=== PATIENT | female | born 1950 | race Caucasian/White ===

== ENCOUNTER 2016-11-10 15:22 | Inpatient (IN) ==
[2016-11-10 17:57] LABS: ALLEN TEST YES; BE -1.7 mmoll (-3.0-3.0); BLOOD TYPE ARTERIAL; DRAW SITE L RADIAL; METHB 1.6 % (0.0-1.5); MODALITY ROOM AIR; O2(CT) 15.7 mL/dL (15.0-23.0); PCO2(98.6) 30 mmHg (35-45); PO2(98.6) 75 mmHg (60-100); SAMPLE BLOOD; SAO2 98.2 % (95.0-100.0); THB 11.7 g/dL (11.5-17.4); pH(98.6) 7.46 (7.35-7.45)
[2016-11-10 19:19] LABS: MANUAL DIFF NEEDED? NO
[2016-11-10 19:26] LABS: BASO% 0.4 % (0.0-0.8); EOS# 0.14 X1000 (0.0-0.7); EOS% 1.5 % (0.0-10.0); HEMATOCRIT 33.4 % (37.0-47.0); HEMOGLOBIN 11.2 g/dL (12.0-16.0); IMM GRAN# 0.02 X1000 (0.0-0.04); IMM GRAN% 0.2 % (0.0-0.5); LYMPH# 1.57 X1000 (1.2-3.4); LYMPH% 16.6 % (20.5-51.1); MCH 30.8 PG (27-31); MCHC 33.5 g/dL (33-37); MCV 91.8 FL (81-99); MONO# 0.78 X1000 (0.11-0.59); MONO% 8.3 % (1.7-9.3); MPV 8.5 FL (7.4-10.4); PLT 607 X1000 (130-400); RBC 3.64 XMIL (4.2-5.4)
[2016-11-10 19:41] LABS: INR 1.06; PROTIME 10.8 Seconds (9.2-11.7)
[2016-11-10 19:48] LABS: ALBUMIN 3.2 g/dL (3.5-5.0); POTASSIUM 4.3 mmol/L (3.5-5.1); TOTAL BILIRUBIN 0.33 mg/dL (0.20-1.00); TOTAL PROTEIN 7.3 g/dL (6.3-8.3)
--- NOTE | 2016-11-10 22:17 | HISTORY AND PHYSICAL ---
CHIEF COMPLAINT: Shortness of breath on exertion. No swelling of legs. Decreased appetite for the last 4 weeks. HISTORY OF PRESENT ILLNESS: She is a 66-year-old white female, basically came in my office today with above symptoms. She is extremely tachycardic, pulse oximetry dropped to 94% on exertion. Heart rate is 130. She has been taking tamoxifen. Recently she had a colonoscopy done. Since then, her symptoms are having fatigue, exertional shortness of breath, coughing, no appetite. Clinically, there were no signs of edema. She has been hospitalized basically for rule out pulmonary embolism and further evaluation for exertional shortness of breath. PAST MEDICAL HISTORY: Allergic rhinitis. Breast cancer on the right side 1.8 cm status post lumpectomy, chemo and radiation. ER VT positive, on tamoxifen. Type 2 diabetes. Reflux disease. Hyperlipidemia. Hypertension. Plantar fasciitis. PAST SURGICAL HISTORY: Appendectomy. Cholecystectomy. Partial hysterectomy. Tubal ligation. Right breast lumpectomy. MEDICINES: Aspirin, Flonase, Glucovance 5/500 two tablets p.o. b.i.d., Hyzaar 50/12.5 daily, Prilosec 40 daily, potassium 20 mEq daily, Singulair 10 mg daily, tamoxifen 20 mg daily, Ultracet as needed, Zyrtec 10 mg daily. ALLERGIES: Penicillin. SOCIAL HISTORY: Lives in [place]. . 3 children. Works at [employer]. No smoking. No alcohol. FAMILY HISTORY: Mom of old age. Siblings had breast cancer. Mother of old age. HEALTH MAINTENANCE: Flu vaccine 2015 and mammography recently September 2016. DEXA scan 2013. Colonoscopy [address] Baker. REVIEW OF SYSTEMS: HEENT: No headache. No vision problem. No earache. No sore throat. Neck: No goiter. No lymphadenopathy. Cardiopulmonary: Exertional shortness of breath. No PND. No orthopnea. No chest pain. GI: Decreased appetite. No altered bowel habits. Recent colonoscopy normal. : No dysuria, hematuria, no swelling of feet. No joint pains. Neurologic: No focal symptoms or weakness or seizures. PHYSICAL EXAMINATION: VITAL SIGNS: She is extremely tachycardic, afebrile. HEIGHT AND WEIGHT: 5 feet 9, 208 pounds. HEENT: Atraumatic, normocephalic. Slightly pale. TMs are normal. Nose and throat within normal limits. NECK: Supple. No lymphadenopathy. No goiter. CHEST: Bilateral air entry. Extremely tachycardic. ABDOMEN: Belly is soft, obese, nontender. Good bowel sounds. No masses palpable. EXTREMITIES: No peripheral edema, cyanosis, clubbing. NEUROLOGIC: No obvious focal deficits. INVESTIGATIONS: CBC: White cell count 9.4, hematocrit 33, platelets 607,000. PT/INR is normal. Positive D-dimer. ABG: PH is 7.46, pCO2 30, PO2 75. SMA7 is normal. Glucose 139. Cardiac enzymes were normal. ProBNP is normal. Chest x-ray is pending. EKG is pending. ASSESSMENT AND PLAN: 1. A 66-year-old white female, admitted to the hospital with exertional shortness of breath, lack of appetite since colonoscopy, taking tamoxifen, rule out pulmonary embolism in light of positive D-dimer. If it is negative, follow up on the pending laboratory. 2. Reconcile home medications. Deep venous thrombosis prophylaxis with Lovenox. Based on the computed tomography and chest x-ray, further recommendations will be followed.
--- NOTE | 2016-11-11 05:15 | EKG Report ---
Test Performed on : 11/10/2016 6:05:48 PM Test Reason : chest pain Blood Pressure : / mmHG Vent. Rate : 091 BPM Atrial Rate : 091 BPM P-R Int : 154 ms QRS Dur : 072 ms QT Int : 370 ms P-R-T Axes : 024 011 043 degrees QTc Int : 455 ms Normal sinus rhythm. Normal ECG When compared with ECG of 11-NOV-2015 13:36, [place] interval has decreased Criteria for Anterior infarct are no longer present T wave inversion no longer evident in Inferior leads Nonspecific T wave abnormality no longer evident in Anterolateral leads Confirmed by Omega MILNER, Patrice German ([id number]) on 11/11/2016 9:31:16 AM
[2016-11-11] MEDS: LOVENOX SUBQ SCH (06:37)
--- NOTE | 2016-11-11 07:38 | Diag Imaging Result Document ---
PROCEDURE NAME: ANGIOGRAM/PULMONARY ARTERIES - 11/10/2016 CT OF THE CHEST WITH INTRAVENOUS CONTRAST: FINDINGS: There are no filling defects in the pulmonary arteries. There is consolidation of the right upper lobe particularly laterally. There is some volume loss as well. There is some scattered very small nodular opacities such as the subcentimeter nodule on image 78 in the superior segments of the left lower lobe, as that on image 75. There is a Port-A-Cath on the left. There is a right paratracheal node measuring almost 16 mm in long axis on image 43 and another in the tracheobronchial region on the right measuring over 18 mm. There is extensive calcification of the left anterior descending artery. There is apparent hepatic steatosis. There are no previous studies available for comparison. The opacity in the right upper lobe was not present on the previous portable chest from 12/09/2015. There are no previous chest radiographs subsequent to this before the recent radiograph of 11/10/2016. IMPRESSION: Right upper lobe pneumonia. No evidence of pulmonary emboli.
[2016-11-11] MEDS: KLOR-CON PO SCH (08:35)
[2016-11-11] MEDS: HYZAAR 50/12.5 MG PO SCH (08:35)
[2016-11-11] MEDS: NOLVADEX PO SCH (08:36)
[2016-11-11] MEDS: GLUCOVANCE 5-500 MG TABLET PO SCH ×2 (08:36→08:39)
[2016-11-11] MEDS: ASPIRIN PO SCH (08:37)
[2016-11-11] MEDS: AZACTAM 1 GM in NS 50 ML IV SCH ×2 (08:45→16:38)
[2016-11-11] MEDS ORDERED: LEVAQUIN 750 MG/D5W 150 ML IV ONE (08:45)
--- NOTE | 2016-11-11 09:33 | Diag Imaging Result Document ---
PROCEDURE NAME: CHEST-2 VIEWS - 11/10/2016 CHEST X-RAY, 2 VIEWS: COMPARISON: 12/09/2015. FINDINGS: There is a stable left chest port. There is significant infiltrate throughout the right upper lobe. Heart size remains normal. No pneumothorax or pleural effusion. IMPRESSION: Right upper lobe pneumonia.
[2016-11-11] MEDS ORDERED: BLISTEX MEDICATED BERRY LIP BALM TOP PRN (11:22)
[2016-11-12] MEDS: AZACTAM 1 GM in NS 50 ML IV SCH ×3 (01:52→20:03)
[2016-11-12] MEDS: LOVENOX SUBQ SCH (06:03)
[2016-11-12] MEDS: HYZAAR 50/12.5 MG PO SCH (08:56)
[2016-11-12] MEDS: NOLVADEX PO SCH (08:57)
[2016-11-12] MEDS: KLOR-CON PO SCH (08:57)
[2016-11-12] MEDS: ASPIRIN PO SCH (08:57)
[2016-11-12] MEDS: LEVAQUIN 750 MG/D5W 150 ML IV SCH (09:05)
[2016-11-13] MEDS: AZACTAM 1 GM in NS 50 ML IV SCH ×3 (04:34→21:02)
[2016-11-13] MEDS: LOVENOX SUBQ SCH (05:13)
[2016-11-13] MEDS: NOLVADEX PO SCH (10:09)
[2016-11-13] MEDS: KLOR-CON PO SCH (10:10)
[2016-11-13] MEDS: HYZAAR 50/12.5 MG PO SCH (10:10)
[2016-11-13] MEDS: LEVAQUIN 750 MG/D5W 150 ML IV SCH (10:10)
[2016-11-13] MEDS: ASPIRIN PO SCH (10:10)
[2016-11-13] MEDS: GLUCOVANCE 5-500 MG TABLET PO SCH (18:32)
[2016-11-14] MEDS: AZACTAM 1 GM in NS 50 ML IV SCH ×2 (03:55→13:31)
[2016-11-14] MEDS: LOVENOX SUBQ SCH (06:14)
[2016-11-14] MEDS: LEVAQUIN 750 MG/D5W 150 ML IV SCH (10:20)
[2016-11-14] MEDS: NOLVADEX PO SCH (10:20)
[2016-11-14] MEDS: ASPIRIN PO SCH (10:20)
[2016-11-14] MEDS: GLUCOVANCE 5-500 MG TABLET PO SCH ×2 (10:20→17:51)
[2016-11-14] MEDS: HYZAAR 50/12.5 MG PO SCH (10:20)
[2016-11-14] MEDS: KLOR-CON PO SCH (10:20)
[2016-11-14] MEDS ORDERED: ZOFRAN IV PRN (14:01)
--- NOTE | 2016-11-14 14:58 | PROGRESS NOTE ---
DATE: 11/14/2016 SUBJECTIVE: Ms. Goldman is doing fair. The patient does have mild cough with scanty sputum production. No typical chest pain. Complaining of some sweating. No nausea or vomiting. The patient was admitted with right upper lobe pneumonia. Admission history and physical noted. Denied dysuria or hematuria. No diarrhea, blood, or mucus in the stool. Known case of breast cancer, status post lumpectomy, on tamoxifen, NIDDM, hypertension, hyperlipidemia, gastroesophageal reflux disease, plantar aphasia. OBJECTIVE: Vital signs: Noted. Neck: Supple. No JVD. Lungs: Bilateral good air entry present. CVS: S1 and S2 heard. Abdomen: Soft. No distention. Bowel sounds present. Extremities: No cyanosis, clubbing. No acute DVT. [employer] DEVELOPER: Alert, awake. Able to move all 4 limbs. CONSIDERATION: 1. Right upper lobe pneumonia. 2. Noninsulin-dependent diabetes mellitus. 3. Hypertension. 4. History of breast cancer. 5. Gastritis and reflux disease. PLAN: The patient is on IV antibiotics, sliding scale insulin, DVT prophylaxis. We will continue her home medicine. Current medications reviewed. Overall plan discussed with the patient. We are going to do blood work and chest x-ray tomorrow.
[2016-11-14] MEDS: NS IV SCH (20:19)
[2016-11-14] MEDS: AZACTAM IV SCH (20:19)
[2016-11-15] MEDS: AZACTAM IV SCH ×3 (04:14→22:17)
[2016-11-15] MEDS: NS IV SCH ×3 (04:14→22:17)
[2016-11-15] MEDS: LOVENOX SUBQ SCH (05:18)
[2016-11-15 07:32] LABS: MANUAL DIFF NEEDED? NO
[2016-11-15 07:43] LABS: BASO% 0.5 % (0.0-0.8); EOS# 0.27 X1000 (0.0-0.7); EOS% 2.7 % (0.0-10.0); HEMATOCRIT 30.9 % (37.0-47.0); HEMOGLOBIN 10.2 g/dL (12.0-16.0); IMM GRAN# 0.03 X1000 (0.0-0.04); IMM GRAN% 0.3 % (0.0-0.5); LYMPH# 1.47 X1000 (1.2-3.4); LYMPH% 14.6 % (20.5-51.1); MCH 30.4 PG (27-31); MONO# 0.91 X1000 (0.11-0.59); MONO% 9.1 % (1.7-9.3); MPV 8.8 FL (7.4-10.4); NEUT% 72.8 % (42.2-75.2); PLT 520 X1000 (130-400); RBC 3.36 XMIL (4.2-5.4)
[2016-11-15 08:00] LABS: CALCIUM 8.9 mg/dL (8.8-10.2); POTASSIUM 4.2 mmol/L (3.5-5.1)
--- NOTE | 2016-11-15 10:00 | Diag Imaging Result Document ---
PROCEDURE NAME: CHEST-2 VIEWS - 11/15/2016 CHEST X-RAY 2 VIEWS, 11/15/2016: COMPARISON: 11/10/2016. FINDINGS: There is decrease in the density of the right upper lobe infiltrate/pneumonia. No new infiltrates. Heart size remains normal. Stable left chest port. IMPRESSION: Improvement from prior.
[2016-11-15] MEDS: HYZAAR 50/12.5 MG PO SCH (11:06)
[2016-11-15] MEDS: ASPIRIN PO SCH (11:07)
[2016-11-15] MEDS: KLOR-CON PO SCH (11:07)
[2016-11-15] MEDS: GLUCOVANCE 5-500 MG TABLET PO SCH ×2 (11:07→17:15)
[2016-11-15] MEDS: LEVAQUIN 750 MG/D5W 150 ML IV SCH (11:07)
[2016-11-15] MEDS: NOLVADEX PO SCH (11:07)
[2016-11-16] MEDS: AZACTAM IV SCH ×3 (05:01→20:52)
[2016-11-16] MEDS: NS IV SCH ×3 (05:01→20:52)
[2016-11-16] MEDS: LOVENOX SUBQ SCH (05:02)
[2016-11-16] MEDS: ASPIRIN PO SCH (10:35)
[2016-11-16] MEDS: GLUCOVANCE 5-500 MG TABLET PO SCH ×2 (10:35→16:50)
[2016-11-16] MEDS: KLOR-CON PO SCH (10:35)
[2016-11-16] MEDS: LEVAQUIN 750 MG/D5W 150 ML IV SCH (10:36)
[2016-11-16] MEDS: NOLVADEX PO SCH (10:36)
[2016-11-16] MEDS: HYZAAR 50/12.5 MG PO SCH (10:36)
[2016-11-17] MEDS: AZACTAM IV SCH ×3 (04:30→21:00)
[2016-11-17] MEDS: NS IV SCH ×3 (04:30→21:00)
[2016-11-17] MEDS: LOVENOX SUBQ SCH (05:03)
--- NOTE | 2016-11-17 10:20 | Diag Imaging Result Document ---
PROCEDURE NAME: CHEST-2 VIEWS - 11/17/2016 CHEST X-RAY, 2 VIEWS: COMPARISON: 11/15/2016. FINDINGS: There is stable significant opacity in the lateral right upper lobe. Stable left chest port. No new infiltrates. Heart size remains normal. IMPRESSION: No change from prior.
[2016-11-17] MEDS: KLOR-CON PO SCH (10:42)
[2016-11-17] MEDS: NOLVADEX PO SCH (10:43)
[2016-11-17] MEDS: LEVAQUIN 750 MG/D5W 150 ML IV SCH (10:43)
[2016-11-17] MEDS: HYZAAR 50/12.5 MG PO SCH (10:43)
[2016-11-17] MEDS: ASPIRIN PO SCH (10:43)
[2016-11-17] MEDS: GLUCOVANCE 5-500 MG TABLET PO SCH (16:51)
[2016-11-18] MEDS: LOVENOX SUBQ SCH ×2 (03:50→06:43)
[2016-11-18] MEDS: AZACTAM IV SCH ×3 (03:50→22:02)
[2016-11-18] MEDS: NS IV SCH ×3 (03:50→22:02)
[2016-11-18] MEDS: LEVAQUIN 750 MG/D5W 150 ML IV SCH (08:47)
[2016-11-18] MEDS: KLOR-CON PO SCH (08:49)
[2016-11-18] MEDS: HYZAAR 50/12.5 MG PO SCH (08:49)
[2016-11-18] MEDS: NOLVADEX PO SCH (08:50)
[2016-11-18] MEDS: GLUCOVANCE 5-500 MG TABLET PO SCH ×2 (08:50→16:46)
[2016-11-18] MEDS: ASPIRIN PO SCH (08:50)
[2016-11-19] MEDS: AZACTAM IV SCH (05:40)
[2016-11-19] MEDS: NS IV SCH (05:40)
[2016-11-19] MEDS: LOVENOX SUBQ SCH (05:40)
--- NOTE | 2016-11-19 06:56 | Diag Imaging Result Document ---
PROCEDURE NAME: CHEST-PORTABLE - 11/19/2016 PORTABLE CHEST: COMPARISON: 11/17/2016. FINDINGS: Poor inspiratory effort. The right hemidiaphragm is elevated on the current exam. Interval worsening in the right lung infiltrates. The vessels are not distended. No change in the left-sided Port-A-Cath. No pneumothorax. IMPRESSION: Worsening in the right infiltrates.
[2016-11-19] MEDS: LEVAQUIN 750 MG/D5W 150 ML IV SCH (08:26)
[2016-11-19] MEDS: NOLVADEX PO SCH (08:27)
[2016-11-19] MEDS: HYZAAR 50/12.5 MG PO SCH (08:28)
[2016-11-19] MEDS: GLUCOVANCE 5-500 MG TABLET PO SCH ×2 (08:29→17:43)
[2016-11-19] MEDS: KLOR-CON PO SCH (08:29)
[2016-11-19] MEDS: ASPIRIN PO SCH (08:30)
[2016-11-19] MEDS: SOLU-MEDROL IV SCH ×2 (10:55→17:43)
--- NOTE | 2016-11-19 15:52 | CONSULTATION ---
DATE OF CONSULTATION: 11/19/2016 REFERRING PHYSICIAN: Jv Christensen M.D. CHIEF COMPLAINT: Shortness of breath. HISTORY OF PRESENT ILLNESS: This is a 66-year-old female with a past medical history of breast cancer, diabetes, GERD, hyperlipidemia, hypertension who presented to the hospital with a complaint of shortness of breath. She was admitted on 11/10/2016 and was given antibiotics for pneumonia that is worsening despite treatment. The patient states that her shortness of breath is mainly exertional and she is maintaining appropriate oxygen saturations on room air at this time. She denies any chest pain, abdominal pain, nausea, vomiting, or diarrhea. REVIEW OF SYSTEMS: A 10-point review of systems was conducted and was negative except as mentioned in the HPI, otherwise noncontributory. PAST MEDICAL HISTORY: As mentioned in HPI, otherwise noncontributory. PAST SURGICAL HISTORY: Appendectomy, cholecystectomy, partial hysterectomy, tubal ligation, right breast lumpectomy. ALLERGIES: Penicillin. SOCIAL HISTORY: She is . She works at [employer]. She denies use of tobacco, alcohol or illicit drugs. FAMILY HISTORY: Notable for breast cancer. ACTIVE MEDICATIONS: Aspirin, Lovenox, Glucovance, Hyzaar, Levaquin, Solu-Medrol, Zofran, Klor- Con, Nolvadex. PHYSICAL EXAMINATION: Vital Signs: Temperature 98, heart rate 59, respiratory 22, blood pressure 113/54, oxygen saturation 98%. General: Awake, alert, sitting up in chair at bedside. No family at bedside. No acute distress noted. HEENT: Normocephalic and atraumatic. PERRL. Moist mucus membranes. Cardiovascular: Regular rate and rhythm. S1-S2 present. No murmurs, rubs, or gallops appreciated. Chest: Reduced entry. Abdomen: Soft, bowel sounds present in all quadrants. Extremities: No edema noted. Neurologic: Alert and oriented x3. No focal deficits. LABS AND INVESTIGATIONS: Chest x-ray performed on 11/19/2016 shows worsening in the right infiltrates. ASSESSMENT AND PLAN: This is a 66-year-old, female with a past medical history as mentioned in HPI, who presented to the hospital initially with complaint of shortness of breath. She was diagnosed with pneumonia and treated with antibiotics. Despite her 9 day course of antibiotics her infiltrates appear to be worsening on imaging. The patient's shortness of breath is exertional. She is not requiring any oxygen at this time. Consider consultation with Dr. Schwab. Continue antibiotics, IV steroids and DVT prophylaxis. Further recommendations pending diagnostic studies. Thank for the courtesy of this consultation. Dictated by:
[2016-11-20] MEDS: SOLU-MEDROL IV SCH ×3 (01:33→17:51)
[2016-11-20] MEDS: LOVENOX SUBQ SCH (06:20)
[2016-11-20 07:14] LABS: BASO% 0.1 % (0.0-0.8); HEMATOCRIT 33.5 % (37.0-47.0); IMM GRAN# 0.02 X1000 (0.0-0.04); IMM GRAN% 0.2 % (0.0-0.5); LYMPH# 0.77 X1000 (1.2-3.4); LYMPH% 8.5 % (20.5-51.1); MANUAL DIFF NEEDED? YES; MCH 29.6 PG (27-31); MCHC 32.8 g/dL (33-37); MCV 90.3 FL (81-99); MONO# 0.24 X1000 (0.11-0.59); MONO% 2.6 % (1.7-9.3); MPV 8.7 FL (7.4-10.4); NEUT% 88.6 % (42.2-75.2); PLT 506 X1000 (130-400); RBC 3.71 XMIL (4.2-5.4)
[2016-11-20 07:27] LABS: BANDS 10 % (0-1); LYMPHS 10 % (21-51); MONO 2 % (1-9)
[2016-11-20 07:44] LABS: CALCIUM 9.6 mg/dL (8.8-10.2); POTASSIUM 4.5 mmol/L (3.5-5.1)
[2016-11-20] MEDS: LEVAQUIN 750 MG/D5W 150 ML IV SCH (08:28)
[2016-11-20] MEDS: NOLVADEX PO SCH (08:29)
[2016-11-20] MEDS: ASPIRIN PO SCH (08:29)
[2016-11-20] MEDS: HYZAAR 50/12.5 MG PO SCH (08:29)
[2016-11-20] MEDS: GLUCOVANCE 5-500 MG TABLET PO SCH ×2 (08:29→17:51)
[2016-11-20] MEDS: KLOR-CON PO SCH (08:29)
[2016-11-20] MEDS: HUMULIN R SUBQ SCH ×3 (11:40→21:15)
[2016-11-21] MEDS: SOLU-MEDROL IV SCH ×2 (00:37→08:30)
[2016-11-21] MEDS: LOVENOX SUBQ SCH (06:04)
[2016-11-21] MEDS: HUMULIN R SUBQ SCH ×3 (06:05→20:43)
[2016-11-21] MEDS: LEVAQUIN 750 MG/D5W 150 ML IV SCH (08:31)
[2016-11-21] MEDS: HYZAAR 50/12.5 MG PO SCH (08:33)
[2016-11-21] MEDS: KLOR-CON PO SCH (08:33)
[2016-11-21] MEDS: NOLVADEX PO SCH (08:33)
[2016-11-21] MEDS: GLUCOVANCE 5-500 MG TABLET PO SCH (08:33)
[2016-11-21] MEDS: ASPIRIN PO SCH (08:33)
--- NOTE | 2016-11-21 09:58 | Diag Imaging Result Document ---
PROCEDURE NAME: CHEST-1 VIEW - 11/21/2016 SINGLE FRONTAL RADIOGRAPH OF THE CHEST: COMPARISON: 11/19/2016. FINDINGS: Left chest port is in stable position. There appears to have been interval decrease in density of the focal infiltrate in the right upper lobe. No new consolidations are identified. Cardiac silhouette is stable. IMPRESSION: Apparent interval improvement of the dense focal consolidation in the right upper lobe.
--- NOTE | 2016-11-21 11:15 | PROGRESS NOTE ---
DATE: 11/21/2016 SUBJECTIVE: The patient says she is feeling better. OBJECTIVE: Vital Signs: Blood pressure 127/66, respirations 20, pulse 82, temperature 97.7 degrees Fahrenheit. HEENT: She is normocephalic. EOMs intact. PERRLA. Throat clear. Lungs: Clear to auscultation and percussion without rhonchi, rales, or wheezes. Right upper lobe infiltrate seems to be improving on chest x-ray done today. Heart: Regular rate rhythm without murmurs, gallops, or friction rubs. Abdomen: Soft. Active bowel sounds. No organomegaly or tenderness. Neurological: Intact grossly. ASSESSMENT: 1. Right upper lobe infiltrate/pneumonia, improving. 2. Diabetes mellitus. PLAN: Continue care.
[2016-11-22] MEDS: SOLU-MEDROL IV SCH (04:31)
[2016-11-22] MEDS: LOVENOX SUBQ SCH (05:40)
[2016-11-22] MEDS: HUMULIN R SUBQ SCH (06:51)
--- NOTE | 2016-11-22 07:01 | Diag Imaging Result Document ---
PROCEDURE NAME: CHEST-1 VIEW - 11/22/2016 PORTABLE CHEST: COMPARISON: Compared to 11/21/2106. FINDINGS: No change in the left-sided [id number]. No pneumothorax. There is an irregular infiltrate/density in the mid right lung. The appearance is similar to that of the prior exam. Heart is borderline mildly prominent. The vessels are not distended. No pleural effusions identified. IMPRESSION: Stable chest.
[2016-11-22 07:35] VITALS: BP 113/57
[2016-11-22] MEDS ORDERED: PREVNAR 13 IM ONE (08:36)
--- NOTE | 2016-11-22 09:13 | CONSULTATION ---
DATE OF CONSULTATION: 11/22/2016 CONCLUSION: The patient has developed a right mid-lung field pneumonia. She told me that it started on the day she had a colonoscopy. She said she woke up and she was coughing. I think most likely the patient aspirated during the colonoscopy. This is the cause of her pneumonia. She has a history of penicillin allergy manifested by a syncope and rash. She had has tolerated Keflex well in the past. RECOMMENDATIONS: Dr. Christensen and I have discussed the patient's case. We think it would be good to send the patient home on a combination of Levaquin and Flagyl. Flagyl in a dose of 500 mg daily and Levaquin in a dose of 500 mg p.o. every 8 hours. Levaquin would be p.o. also. DISCUSSION: The patient said that on the day she had her colonoscopy she woke up and she was coughing and has continued to cough since that time. This occurred on October 20. She complains of dyspnea. She also has decreased energy and anorexia. She is not coughing up any sputum at this time. LABORATORY STUDIES: Thus far show a CBC with a white count of 9090, hemoglobin 11, and platelet count is 506,000. Patient's creatinine is 1.2. The GFR is 45. Chest x-ray as mentioned above, shows a right mid lung field infiltrate. 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 She has had a hysterectomy and tubal ligation. PAST MEDICAL HISTORY/REVIEW OF SYSTEMS: Eyes and ears: She denies difficulty hearing or seeing. Neck: No stiffness. Respiratory: As mentioned above, she is complaining of cough with dyspnea and loss of energy, as well as anorexia. Cardiac: No chest pain or palpitations. GI: No nausea or vomiting. She did have 3 loose stools yesterday. This the first time that they were loose, but she has not had any yet today. bones/joints/muscles: No joint swelling or muscle aching. Skin: No rashes. Neurologic: No motor sensory loss. No seizures. The remainder of the patient's review of systems was completed and was negative. PAST MEDICAL HISTORY: As mentioned above, the patient has had 3 labor and deliveries, a hysterectomy, and tubal ligation. She also has had a cholecystectomy and colonoscopy. She has had placement of a left sided Port-A-Cath, which is still present. MEDICAL DISEASES: Positive for diabetes mellitus, hypertension, breast cancer, for which she has undergone a lumpectomy, chemotherapy, and radiation therapy. INFECTIOUS DISEASE HISTORY: Positive for urinary tract infection. FAMILY HISTORY: Positive for cancer, diabetes mellitus, hypertension, myocardial infarction, and stroke. SOCIAL HISTORY[place] . She has a dog as a pet. The patient does not smoke cigarettes, drink alcoholic beverages, or abuse drugs. ALLERGIES: She had an allergic reaction of penicillin manifested by syncope and rash. She tells me that she has had Keflex in the past and tolerates it well. Patient is also allergic to bee stings. MEDICATIONS: The patient's medications taken at home include the following: Tamoxifen, glyburide, aspirin, potassium, losartan/hydrochlorothiazide, Flagyl, and Levaquin. PHYSICAL EXAMINATION: Vital Signs: Temperature is 97.7 degrees, pulse 86, respirations 17, blood pressure 113/57. General Appearance: Generally, this is a fairly healthy-appearing, middle-aged female. She is in no acute distress. Head/eyes/ears/nose/throat: She can hear my spoken words and see near objects. No drainage is noted from the nose or ears. Neck: No meningismus. Thorax: No increased AP diameter to the chest. Lungs: Clear to auscultation. Cardiovascular: Regular heart rate. Abdomen: Soft and nontender. Neurologic: Patient is alert. She can move her extremities. There is no tremor. Her sensation is intact to touch. Her memory, as regarding her medical history, is intact. Integument: No rash noted. Thank you for the consult.
[2016-11-22] MEDS: ASPIRIN PO SCH (10:01)
[2016-11-22] MEDS: GLUCOVANCE 5-500 MG TABLET PO SCH (10:01)
[2016-11-22] MEDS: KLOR-CON PO SCH (10:01)
[2016-11-22] MEDS: NOLVADEX PO SCH (10:01)
[2016-11-22] MEDS: HYZAAR 50/12.5 MG PO SCH (10:02)
[2016-11-22] MEDS: LEVAQUIN 750 MG/D5W 150 ML IV SCH (10:03)
--- NOTE | 2016-11-22 23:03 | DISCHARGE SUMMARY ---
ADMISSION DATE: 11/10/2016 DISCHARGE DATE: 11/22/2016 DISCHARGING DIAGNOSIS: Shortness of breath due to right upper lobe pneumonia presumed to be aspiration. SECONDARY DIAGNOSES: 1. Allergic rhinitis. 2. History of breast cancer on the right side 1.8 cm, stage I, status post lumpectomy, chemotherapy and radiation. On tamoxifen. 3. Type 2 diabetes. 4. Reflux disease. 5. Hyperlipidemia. 6. Hypertension. CONSULTATIONS: 1. Pranav Schwab M.D. 2. Martinez Rivera M.D. BRIEF HISTORY: Please see the H and P that was done on 11/10/2016. In brief, she is a 66-year- old, white female, who was admitted to the hospital with shortness of breath and lack of appetite after colonoscopy recently. She was extremely tachycardic and I thought initially rule out pulmonary embolism. She has a positive D-dimer. CT of the chest showed no pulmonary embolism except right upper lobe pneumonia. HOSPITAL COURSE: She was given oxygen and IV antibiotics with Azactam and Levaquin. She failed to improve. Clinically there were no signs of pneumonitis. I did compare x-rays in the office in October 2016. There was no consolidation on the x-ray. Since she failed to improve, I did ask Dr. Rivera who recommended to see an ID specialist and subsequently she slowly improved after adding steroids. During this hospital course she developed hypoglycemia and I cut down the local Glucovance pills from 4 pills to [address] Pranav Schwab continued Levaquin and Flagyl. If no improvement, we will do outpatient workup. LABORATORIES: CBC: White cell count 9, hematocrit 33, platelets 506,000. SMA 7, sodium 136, potassium 4.5, chloride 100, BUN 27, creatinine 1.2, glucose 289. ABG on room air: pH is 7.46, pCO2 30 PO2 75. ProBNP 354. LFTs were normal. HEALTH MAINTENANCE: Flu vaccine 11/13/2015, pneumococcal vaccine 11/22/2016 which was Prevnar. DISCHARGE INSTRUCTIONS: 1. Aspirin 80 mg daily. 2. Potassium 20 mEq daily. 3. Hyzaar 50/12.5 daily. 4. Glucovance 5/500, one tablet p.o. b.i.d. 5. Tamoxifen 20 mg daily. 6. Levaquin 500 daily for 10 days. 7. Flagyl 500 t.i.d. for 7 days. 8. Follow up in my office in 10 days. Repeat chest x-ray. 9. Continue to follow up with Dr. Izquierdo for breast cancer surveillance.
== END 2016-11-22 10:50 | disposition home or self-care (01) | DRG 179 ==
LOC: DIRADM 15:22 → 3N 16:50
PROVIDERS: ADMIT Internal Medicine; ATTEND Internal Medicine
DX: J69.0 Pneumonitis due to inhalation of food and vomit (principal); E11.649 Type 2 diabetes mellitus with hypoglycemia without coma; C50.911 Malignant neoplasm of unspecified site of right female breast; I10 Essential (primary) hypertension; E78.5 Hyperlipidemia, unspecified; K21.9 Gastro-esophageal reflux disease without esophagitis; Z23 Encounter for immunization; J30.9 Allergic rhinitis, unspecified; K29.70 Gastritis, unspecified, without bleeding; Z79.810 Long term (current) use of selective estrogen receptor modulators (SERMs); Z92.21 Personal history of antineoplastic chemotherapy; Z92.3 Personal history of irradiation; Z79.82 Long term (current) use of aspirin; Z79.51 Long term (current) use of inhaled steroids; Z79.84 Long term (current) use of oral hypoglycemic drugs; Z79.899 Other long term (current) drug therapy; Z80.3 Family history of malignant neoplasm of breast; Z83.3 Family history of diabetes mellitus; Z82.49 Family history of ischemic heart disease and other diseases of the circulatory system; Z82.3 Family history of stroke; R79.1 Abnormal coagulation profile
CPT/HCPCS: 71010; 71020; 71275; 80048; 80053; 82805; 82948; 83880; 84484; 85025; 85379; 85610; 90670; 93005; 93010; J1650; J2930; Q9967; S0187; S0073